=== PATIENT | female | born 1995 | race Caucasian/White ===

== ENCOUNTER → 2016-02-15 | Outpatient (CLI) | payer OTHER ==
--- NOTE | 2016-02-15 18:05 | REP ---
OBSTETRIC SONOGRAPHY: HISTORY: growth study. FINDINGS: Scanning through the gravid uterus demonstrates a viable single intrauterine gestation in a cephalic lie. motion is observed and heart rate is recorded at 150 beats per minute. An anterior grade 1 placenta is seen without evidence of previa or abruption. Amniotic fluid is subjectively normal. Closed cervical length is 4.1 cm. No extrauterine abnormality is observed. No anomaly is seen. The following anatomic structures are identified and felt to be sonographically unremarkable: cranium, choroid plexus, cavum, cerebellum and posterior fossa, face in profile, lungs, four chamber heart with left and right ventricular outflow tract views, diaphragm, left-sided stomach, abdominal wall cord insertion, three-vessel umbilical cord, kidneys and bladder, spine, upper and lower extremities. Biometry chart: BPD 7.8 cm = 31 weeks 1 day HC 29.0 cm = 31 weeks 6 days AC 27.6 cm = 31 weeks 4 days FL 6.0 cm = 31 weeks 2 days HL 5.4 cm = 31 weeks 3 days CD 4.2 cm = 33 weeks 1 day HC/AC ratio normal 1.05. Cephalic index normal 0.74. Estimated weight 1779 grams, 3 pounds 14 ounces, 51st percentile for 31 weeks 1 day. HENNY normal 11.6 cm. S/D ratio in the umbilical cord artery by Doppler is slightly low at 2.23 (2.50 to 3.50). IMPRESSION: Viable single intrauterine gestation at 31 weeks 1 day by today's composite sonographic criteria. TRENT by today's sonography April 27, 2016. No anomaly seen. Signed by Kelvin Turner MD 02/16/2016 03:30 P
== END | disposition home or self-care (01) ==
LOC: M SMT 09:40
PROVIDERS: ATTEND Advanced Practice Midwife
DX: Z34.83 Encounter for supervision of other normal pregnancy, third trimester (principal); Z36 Encounter for antenatal screening of mother; Z3A.31 31 weeks gestation of pregnancy

== ENCOUNTER 2016-03-01 20:23 | Outpatient (CLI) | payer OTHER, SELFPAY ==
[~2016-03-01] VITALS: Ht 152.4 cm; Wt 60.0 kg
[2016-03-01] MEDS ORDERED: PRENTAB55 PO (20:49)
[2016-03-01] MEDS ORDERED: LACTATED RINGER'S 1000 ML IV ONE (21:15)
== END 2016-03-02 01:19 | disposition home or self-care (01) ==
LOC: M LDO 20:23
PROVIDERS: ATTEND Advanced Practice Midwife
DX: O47.03 False labor before 37 completed weeks of gestation, third trimester (principal); Z3A.33 33 weeks gestation of pregnancy

== ENCOUNTER → 2016-03-20 | Outpatient (REF) | payer OTHER ==
[~2016-03-20] MED LIST: PRENTAB55 PO
== END | disposition home or self-care (01) ==
LOC: M LAB REF 16:56
PROVIDERS: ATTEND Specialist
DX: Z34.83 Encounter for supervision of other normal pregnancy, third trimester (principal); Z36 Encounter for antenatal screening of mother; Z3A.00 Weeks of gestation of pregnancy not specified

== ENCOUNTER 2016-04-09 11:37 | Inpatient (IN) | payer OTHER ==
[2016-04-09] VITALS (7 sets, daily range): BP systolic 116–123; BP diastolic 57–77
[~2016-04-09] VITALS: Ht 154.9 cm; Wt 70.0 kg
[2016-04-09] MEDS ORDERED: LR 1,000 ML IV SCH (11:51)
[2016-04-09] MEDS ORDERED: LACTATED RINGER'S 1000 ML IV STA (11:51)
[2016-04-09 12:21] LABS: MEAN CORPUSCULAR HGB CONC 34.9 g/dl (32.0-36.5); MEAN CORPUSCULAR VOLUME 91.8 fl (80.0-96.0); RED CELL DISTRIBUTION WIDTH 13.2 % (11.5-14.5); WHITE BLOOD COUNT 8.4 K/mm3 (4.0-10.0)
[2016-04-09] MEDS ORDERED: FENTANYL 2MCG/ML ROPIVACAINE 0.2% NACL 250 ML CADD As Ordered ONE (19:12)
[2016-04-09] MEDS ORDERED: OXYTOCIN 30 UNITS IN 0.9% NaCl 500ML IV BAG (J2590) As Ordered ONE (20:41)
[2016-04-09] MEDS ORDERED: EPIDURAL COMMENT XX SCH (20:45)
[2016-04-09] MEDS ORDERED: LACTATED RINGER'S 1000 ML IV PRN (20:45)
[2016-04-09] MEDS ORDERED: NALOXONE INJ 0.4 MG/1 ML VIAL (J2310) IV PRN (20:45)
[2016-04-09] MEDS ORDERED: diphenhydrAMINE INJ 50MG/ML VIAL (J1200) IV PRN (20:45)
[2016-04-09] MEDS ORDERED: REFRIGERATOR IV KEYS XX PRN (20:45)
[2016-04-09] MEDS ORDERED: EPIDURAL/PCA KEYS XX PRN (20:45)
[2016-04-09] MEDS ORDERED: FENTANYL/ROPIVACAINE/NACL CADD 250 ML EPIDURAL SCH (20:45)
[2016-04-09] MEDS ORDERED: ONDANSETRON 4MG/2ML VIAL (J2405) IV PRN (20:45)
[2016-04-09] MEDS ORDERED: ePHEDrine SULFATE 25 MG/5 ML(5MG/ML) SYRINGE IV PRN (20:45)
[2016-04-10] MEDS ORDERED: RHOGAM 300 MCG (1500 IU) INJ (J2790) IM SCH
[2016-04-10] MEDS ORDERED: DIBUCAINE 1% OINTMENT 30GM TOP PRN
[2016-04-10] MEDS ORDERED: PROMETHAZINE 25 MG TAB PO PRN
[2016-04-10] MEDS ORDERED: IBUPROFEN 800 MG TAB PO PRN
[2016-04-10] MEDS ORDERED: MEASLES,MUMPS,RUBELLA VACCINE INJ (MMR-II) (90707) SC SCH
[2016-04-10] MEDS ORDERED: ONDANSETRON 4MG/2ML VIAL (J2405) IV PRN
[2016-04-10] MEDS ORDERED: OXYTOCIN DRIP 30 UNITS in APPROPRIATE DILUENT 1 EA IV SCH ×2
[2016-04-10] MEDS ORDERED: DOCUSATE SODIUM 100 MG CAP PO PRN
--- NOTE | 2016-04-10 06:41 | REP ---
KUB: Single view. History: No surgical count prior to . Findings: KUB demonstrates an unremarkable bowel gas pattern. There is some artifactual gown or dressing artifact overlying the lower pelvis. An epidural catheter is seen. There is a plastic belt clip projecting in the right upper quadrant. No other opaque foreign body seen. Impression: Epidural catheter. Plastic belt clip projects at the right upper quadrant. No other evidence of opaque foreign body. Signed by Kelvin Turner MD 04/10/2016 08:29 A
[2016-04-10 07:59] VITALS: BP 122/70
[2016-04-10] MEDS: LR 1,000 ML IV SCH ×3 (08:00→16:25)
[2016-04-10] MEDS: PRENATAL VITAMIN TAB PO SCH (10:04)
[2016-04-10] MEDS: ACETAMINOPHEN 500 MG TAB PO PRN ×2 (10:06→16:10)
[2016-04-10 18:00] VITALS: BP 110/52
[2016-04-11 05:27] VITALS: BP 101/54
[2016-04-11] MEDS ORDERED: COLA100C PO (08:38)
[2016-04-11] MEDS ORDERED: TYLE500T78 PO (08:38)
[2016-04-11] MEDS ORDERED: PREN1PAK PO (08:38)
[2016-04-11] MEDS ORDERED: MOTR200T44 PO (08:38)
[2016-04-11] MEDS: PRENATAL VITAMIN TAB PO SCH (09:17)
== END 2016-04-11 11:40 | disposition home or self-care (01) | DRG 775 ==
LOC: M LDI 11:37 → M OBS 04-10 07:48
PROVIDERS: ADMIT Obstetrics & Gynecology; ATTEND Obstetrics & Gynecology
PROC: 10907ZC Drainage of Amniotic Fluid, Therapeutic from Products of Conception, Via Natural or Artificial Opening (ICD-10-PCS; 2016-04-09)
PROC: 10E0XZZ Delivery of Products of Conception, External Approach (ICD-10-PCS; principal; 2016-04-10)
DX: O80 Encounter for full-term uncomplicated delivery (principal); Z37.0 Single live birth; Z3A.39 39 weeks gestation of pregnancy

== ENCOUNTER 2016-05-20 00:19 | Emergency (ER) | payer OTHER ==
[~2016-05-20] VITALS: Ht 152.4 cm; Wt 63.5 kg
[~2016-05-20 00:19] MED LIST changes: +COLA100C3 PO; +MOTR200T44 PO; +PREN1PAK PO; +TYLE500T78 PO
[2016-05-20 00:23] VITALS: BP 140/80
[2016-05-20] MEDS ORDERED: KEFL500C7 PO (02:18)
[2016-05-20] MEDS ORDERED: ACETAMINOPHEN TAB 650MG DOSE (2X325MG) PO ONE (02:30)
[2016-05-20] MEDS ORDERED: CEPHALEXIN 500 MG CAP PO ONE (02:30)
== END 2016-05-20 02:33 | disposition home or self-care (01) ==
LOC: M ED 02:31
DX: O91.23 Nonpurulent mastitis associated with lactation (principal); R50.9 Fever, unspecified